=== PATIENT | female | born 1985 | race Caucasian/White ===

== ENCOUNTER 2018-07-14 16:23 | Outpatient (CLI) | payer MEDICAID | END 2018-07-14 23:59 | disposition home or self-care (01) | LOC: VAS 16:23 | PROVIDERS: ATTEND Registered Nurse | DX: M72.2 Plantar fascial fibromatosis (principal); Z79.82 Long term (current) use of aspirin; Z87.891 Personal history of nicotine dependence | CPT/HCPCS: 93971 ==